=== PATIENT | female | born 1990 | race Caucasian/White ===

== ENCOUNTER 2018-10-02 20:05 | Emergency (ER) | payer OTHER ==
[~2018-10-02] VITALS: Ht 170.2 cm; Wt 136.1 kg
[~2018-10-02 20:05] MED LIST: ACCUNEB SO1.25 MG/1 INH; METFORMIN HCL500 MG PO; PRILOSEC10 MG PO; ULTRAM 50MG TAB50 MG PO; ZOFRAN ODT4 MG PO
[2018-10-02] MEDS ORDERED: TRAZODONE HCL50 MG (20:18)
[2018-10-02] MEDS ORDERED: CYCLOBENZAPRINE5 MG (20:18)
[2018-10-02 20:33] LABS: URINE BILIRUBIN NEGATIVE (Negative); URINE BLOOD NEGATIVE (Negative); URINE CLARITY CLEAR; URINE COLOR YELLOW; URINE GLUCOSE-RANDOM 3+ (Negative); URINE KETONES NEGATIVE (Negative); URINE LEUKOCYTES-REFLEX NEGATIVE (Negative); URINE NITRITE-REFLEX NEGATIVE (Negative); URINE PROTEIN NEGATIVE (Negative); URINE SPECIFIC GRAVITY >= 1.030 (1.005-1.030); URINE UROBILINOGEN 0.2 E.U./dl (0.2-1.0)
[2018-10-02] MEDS ORDERED: ROBAXIN 750 MG750 M1 PO (20:44)
[2018-10-02 20:54] VITALS: BP 137/86
== END 2018-10-02 20:54 | disposition home or self-care (01) ==
LOC: M.ERS 20:05
PROVIDERS: Nurse Practitioner Family
DX: S39.012A Strain of muscle, fascia and tendon of lower back, initial encounter (principal); R31.9 Hematuria, unspecified; E11.9 Type 2 diabetes mellitus without complications; J45.909 Unspecified asthma, uncomplicated; Z90.49 Acquired absence of other specified parts of digestive tract; Z88.1 Allergy status to other antibiotic agents; Z88.0 Allergy status to penicillin; Z88.8 Allergy status to other drugs, medicaments and biological substances; X58.XXXA Exposure to other specified factors, initial encounter; Y93.89 Activity, other specified; Y92.89 Other specified places as the place of occurrence of the external cause; Y99.8 Other external cause status

== ENCOUNTER 2019-11-17 23:14 | Emergency (ER) | payer OTHER ==
[~2019-11-17] VITALS: Ht 170.2 cm; Wt 140.6 kg
[~2019-11-17 23:14] MED LIST changes: +CYCLOBENZAPRINE5 MG; +ROBAXIN 750 MG750 M1 PO; +TRAZODONE HCL50 MG
[2019-11-17] MEDS ORDERED: HYDROCHLOROTHIA25 M2 PO (23:29)
[2019-11-17] MEDS ORDERED: LANTUS SUBQ (23:29)
[2019-11-17] MEDS ORDERED: LEXAPRO 10 MG T10 M1 PO (23:30)
[2019-11-18 00:03] LABS: HEMATOCRIT 42.4 % (37.0-47.0); HEMOGLOBIN 14.7 gm/dL (12.0-15.0); MCH 31.2 pg (26.0-34.0); MCHC 34.8 g/dL (28.0-37.0); MCV 89.7 fL (80.0-100.0); MPV 7.9 fl. (7.2-11.1); RBC 4.72 mil/uL (4.20-5.00); RDW-CV 12.6 % (10.5-14.5); WBC 9.3 thou/uL (4.0-11.0)
[2019-11-18 00:08] LABS: URINE BILIRUBIN NEGATIVE (Negative); URINE BLOOD NEGATIVE (Negative); URINE CLARITY CLEAR; URINE COLOR YELLOW; URINE GLUCOSE-RANDOM 3+ (Negative); URINE KETONES NEGATIVE (Negative); URINE LEUKOCYTES-REFLEX NEGATIVE (Negative); URINE NITRITE-REFLEX NEGATIVE (Negative); URINE PROTEIN NEGATIVE (Negative); URINE UROBILINOGEN 0.2 E.U./dl (0.2-1.0)
[2019-11-18 00:11] LABS: CALCIUM 8.7 mg/dL (8.5-10.1); CREATININE 0.6 mg/dL (0.6-1.3); POTASSIUM 3.4 mmol/L (3.5-5.1)
[2019-11-18 00:16] LABS: ALBUMIN 3.1 g/dL (3.4-5.0); TOTAL BILIRUBIN 0.2 mg/dL (<0.1-1.0); TOTAL PROTEIN 6.9 g/dL (6.4-8.2)
[2019-11-18 00:38] LABS: BE 0.1 mmol/L (-2 to +3); PCO2 VENOUS 39.9 mmHg (41.0-51.0); PO2 VENOUS 156.5 mmHg (35.0-45.0)
[2019-11-18] MEDS ORDERED: CLINDAMYCIN HC150 MG PO (02:22)
[2019-11-18 02:36] VITALS: BP 123/84
== END 2019-11-18 02:36 | disposition home or self-care (01) ==
LOC: M.ERS 23:14
PROVIDERS: Emergency Medicine Emergency Medical Services
DX: E11.65 Type 2 diabetes mellitus with hyperglycemia (principal); K02.9 Dental caries, unspecified; J45.909 Unspecified asthma, uncomplicated; Z90.89 Acquired absence of other organs; Z90.49 Acquired absence of other specified parts of digestive tract; Z87.442 Personal history of urinary calculi; Z88.1 Allergy status to other antibiotic agents; Z88.6 Allergy status to analgesic agent; Z88.0 Allergy status to penicillin; Z88.8 Allergy status to other drugs, medicaments and biological substances

== ENCOUNTER 2019-11-23 07:39 | Emergency (ER) | payer OTHER ==
[~2019-11-23] VITALS: Ht 170.2 cm; Wt 138.8 kg
[~2019-11-23 07:39] MED LIST changes: +CLINDAMYCIN HC150 MG PO; +HYDROCHLOROTHIA25 M2 PO; +LANTUS SUBQ; +LEXAPRO 10 MG T10 M1 PO
[2019-11-23] MEDS ORDERED: TRAMADOL 50 MG50 MG PO (08:12)
[2019-11-23 08:24] VITALS: BP 170/111
== END 2019-11-23 08:24 | disposition home or self-care (01) ==
LOC: M.ERS 07:39
DX: K02.9 Dental caries, unspecified (principal); E11.9 Type 2 diabetes mellitus without complications; Z88.1 Allergy status to other antibiotic agents; Z88.2 Allergy status to sulfonamides; Z88.8 Allergy status to other drugs, medicaments and biological substances; Z88.0 Allergy status to penicillin; J45.909 Unspecified asthma, uncomplicated; Z90.49 Acquired absence of other specified parts of digestive tract; Z86.2 Personal history of diseases of the blood and blood-forming organs and certain disorders involving the immune mechanism; Z87.442 Personal history of urinary calculi; Z79.4 Long term (current) use of insulin

== ENCOUNTER 2020-02-06 15:41 | Emergency (ER) | payer OTHER ==
[~2020-02-06] VITALS: Ht 170.2 cm; Wt 138.8 kg
[~2020-02-06 15:41] MED LIST changes: +TRAMADOL 50 MG50 MG PO
[2020-02-06] MEDS ORDERED: LEVEMIR100 UNIT/1 (15:50)
[2020-02-06] MEDS ORDERED: TRULICITY0.75 MG/0. (15:51)
[2020-02-06 16:28] LABS: URINE BILIRUBIN NEGATIVE (Negative); URINE BLOOD 2+ (Negative); URINE CLARITY CLEAR; URINE COLOR YELLOW; URINE GLUCOSE-RANDOM 3+ (Negative); URINE KETONES NEGATIVE (Negative); URINE LEUKOCYTES-REFLEX NEGATIVE (Negative); URINE NITRITE-REFLEX NEGATIVE (Negative); URINE PROTEIN NEGATIVE (Negative); URINE SPECIFIC GRAVITY 1.015 (1.005-1.030); URINE UROBILINOGEN 0.2 E.U./dl (0.2-1.0)
[2020-02-06 16:37] LABS: MUCUS None Seen strn/LPF (None Seen); SQUAMOUS >10 Many /LPF (0-3)
[2020-02-06 16:38] LABS: BACTERIA-REFLEX 1-9 Few /HPF (None Seen); CASTS None Seen /LPF (None Seen); CRYSTALS None Seen /LPF (None Seen); URINE RBC 3-10 Few /HPF (0-2); URINE WBC-REFLEX 0-5 Rare /HPF (0-5); YEAST-REFLEX Present (None Seen)
[2020-02-06 16:42] LABS: INFLUENZA A ANTIGEN Negative (Negative); INFLUENZA B ANTIGEN Negative (Negative)
[2020-02-06] MEDS ORDERED: TESSALON PERLE100 MG PO (17:19)
[2020-02-06] MEDS ORDERED: ZPAK PO (17:19)
[2020-02-06 17:29] VITALS: BP 156/76
== END 2020-02-06 17:31 | disposition home or self-care (01) ==
LOC: M.ERS 15:41
PROVIDERS: Nurse Practitioner
DX: J06.9 Acute upper respiratory infection, unspecified (principal); E11.9 Type 2 diabetes mellitus without complications; J45.909 Unspecified asthma, uncomplicated; K58.9 Irritable bowel syndrome, unspecified; Z87.442 Personal history of urinary calculi; Z90.49 Acquired absence of other specified parts of digestive tract; Z86.2 Personal history of diseases of the blood and blood-forming organs and certain disorders involving the immune mechanism; Z79.4 Long term (current) use of insulin; Z88.0 Allergy status to penicillin; Z88.1 Allergy status to other antibiotic agents; Z88.2 Allergy status to sulfonamides; Z88.8 Allergy status to other drugs, medicaments and biological substances

== ENCOUNTER 2020-02-26 23:43 | Emergency (ER) | payer OTHER ==
[~2020-02-26] VITALS: Ht 170.2 cm; Wt 138.3 kg
[~2020-02-26 23:43] MED LIST changes: +LEVEMIR100 UNIT/1; +TESSALON PERLE100 MG PO; +TRULICITY0.75 MG/0.; +ZPAK PO
[2020-02-26 23:52] VITALS: BP 145/88
[2020-02-26] MEDS ORDERED: METFORMIN HCL500 M3 PO (23:55)
[2020-02-27] MEDS ORDERED: LEXAPRO 10 MG T10 M1 PO (00:13)
== END 2020-02-27 00:30 | disposition home or self-care (01) ==
LOC: M.ERS 23:43
DX: F41.9 Anxiety disorder, unspecified (principal); K58.9 Irritable bowel syndrome, unspecified; E11.9 Type 2 diabetes mellitus without complications; J45.909 Unspecified asthma, uncomplicated; Z88.1 Allergy status to other antibiotic agents; Z88.0 Allergy status to penicillin; Z88.2 Allergy status to sulfonamides; Z88.8 Allergy status to other drugs, medicaments and biological substances; Z87.442 Personal history of urinary calculi; Z90.49 Acquired absence of other specified parts of digestive tract; Z86.2 Personal history of diseases of the blood and blood-forming organs and certain disorders involving the immune mechanism; Z79.4 Long term (current) use of insulin

== ENCOUNTER 2021-02-02 17:51 | Emergency (ER) | payer OTHER ==
[~2021-02-02] VITALS: Ht 170.2 cm; Wt 136.1 kg
[~2021-02-02 17:51] MED LIST changes: +METFORMIN HCL500 M3 PO
[2021-02-02] MEDS ORDERED: LISINOPRIL10 MG PO (18:01)
[2021-02-02] MEDS ORDERED: XULTOPHY 100 UNI3 ML SUBQ (18:01)
[2021-02-02] MEDS ORDERED: CLEOCIN HCL300 MG PO (18:04)
[2021-02-02] MEDS ORDERED: DIFLUCAN150 MG PO (18:04)
[2021-02-02] MEDS ORDERED: TRAMADOL 50 MG50 MG PO (18:04)
[2021-02-02 18:12] VITALS: BP 144/88
== END 2021-02-02 18:13 | disposition home or self-care (01) ==
LOC: M.ERS 17:51
DX: K02.9 Dental caries, unspecified (principal); E11.9 Type 2 diabetes mellitus without complications; J45.909 Unspecified asthma, uncomplicated; K58.9 Irritable bowel syndrome, unspecified; I10 Essential (primary) hypertension; Z90.49 Acquired absence of other specified parts of digestive tract; Z86.2 Personal history of diseases of the blood and blood-forming organs and certain disorders involving the immune mechanism; Z88.1 Allergy status to other antibiotic agents; Z88.2 Allergy status to sulfonamides; Z88.8 Allergy status to other drugs, medicaments and biological substances; Z87.442 Personal history of urinary calculi

== ENCOUNTER 2021-04-27 18:21 | Emergency (ER) | payer OTHER ==
[~2021-04-27] VITALS: Ht 170.2 cm; Wt 135.2 kg
[~2021-04-27 18:21] MED LIST changes: +CLEOCIN HCL300 MG PO; +DIFLUCAN150 MG PO; +LISINOPRIL10 MG PO; +XULTOPHY 100 UNI3 ML SUBQ
[2021-04-27 18:26] VITALS: BP 135/91
[2021-04-27] MEDS ORDERED: LEXAPRO 10 MG T10 M1 PO (18:31)
[2021-04-27] MEDS ORDERED: PHENTERMINE H37.5 MG PO (18:32)
[2021-04-27] MEDS ORDERED: CLEOCIN HCL150 MG PO (18:48)
== END 2021-04-27 19:08 | disposition home or self-care (01) ==
LOC: M.ERS 18:21
DX: K04.7 Periapical abscess without sinus (principal); I10 Essential (primary) hypertension; E11.9 Type 2 diabetes mellitus without complications; Z87.442 Personal history of urinary calculi; J45.909 Unspecified asthma, uncomplicated; Z90.49 Acquired absence of other specified parts of digestive tract; Z86.2 Personal history of diseases of the blood and blood-forming organs and certain disorders involving the immune mechanism; Z88.1 Allergy status to other antibiotic agents; Z88.0 Allergy status to penicillin; Z88.2 Allergy status to sulfonamides; Z88.8 Allergy status to other drugs, medicaments and biological substances

== ENCOUNTER 2021-08-09 18:27 | Emergency (ER) | payer OTHER ==
[~2021-08-09] VITALS: Ht 170.2 cm; Wt 136.1 kg
[~2021-08-09 18:27] MED LIST changes: +CLEOCIN HCL150 MG PO; +PHENTERMINE H37.5 MG PO
[2021-08-09] MEDS ORDERED: CLEOCIN HCL150 M1 PO (22:04)
[2021-08-09 22:09] VITALS: BP 150/70
== END 2021-08-09 22:09 | disposition home or self-care (01) ==
LOC: M.ERS 18:27
DX: K04.7 Periapical abscess without sinus (principal); E11.9 Type 2 diabetes mellitus without complications; J45.909 Unspecified asthma, uncomplicated; I10 Essential (primary) hypertension; Z87.442 Personal history of urinary calculi; Z79.4 Long term (current) use of insulin; Z79.899 Other long term (current) drug therapy; Z88.1 Allergy status to other antibiotic agents; Z88.8 Allergy status to other drugs, medicaments and biological substances; Z88.0 Allergy status to penicillin; Z88.2 Allergy status to sulfonamides

== ENCOUNTER 2021-10-16 20:18 | Emergency (ER) | payer OTHER ==
[~2021-10-16] VITALS: Ht 170.2 cm; Wt 138.8 kg
[~2021-10-16 20:18] MED LIST changes: +CLEOCIN HCL150 M1 PO
[2021-10-16 21:33] LABS: ABSOLUTE BASOPHILS 0.1 thou/uL (0.0-0.2); ABSOLUTE EOSINOPHILS 0.2 thou/uL (0.0-0.7); ABSOLUTE MONOCYTES 0.6 thou/uL (0.0-1.2); ABSOLUTE NEUTROPHILS 7.6 thou/uL (1.6-8.1); BASOPHILS 0.6 %; EOSINOPHILS 2.2 %; HEMATOCRIT 45.2 % (37.0-47.0); HEMOGLOBIN 15.1 gm/dL (12.0-15.0); LYMPHOCYTES 19.4 %; MCH 30.9 pg (26.0-34.0); MCHC 33.5 g/dL (28.0-37.0); MCV 92.2 fL (80.0-100.0); MONOCYTES 5.3 %; MPV 7.4 fl. (7.2-11.1); NUCLEATED RBCS 0 /100WBC; PLATELET COUNT* 312 thou/uL (150-400); POLYS 72.5 %; RDW-CV 12.8 % (10.5-14.5); WBC 10.5 thou/uL (4.0-11.0)
[2021-10-16 21:37] LABS: CALCIUM 9.1 mg/dL (8.5-10.1); CREATININE 0.6 mg/dL (0.6-1.3); POTASSIUM 4.4 mmol/L (3.5-5.1)
[2021-10-16] MEDS ORDERED: DIFLUCAN150 MG PO (22:28)
[2021-10-16] MEDS ORDERED: METRONIDAZOLE500 M4 PO (22:28)
[2021-10-16] MEDS ORDERED: HYDROCODON-ACE1 EAC8 PO (22:28)
[2021-10-16] MEDS ORDERED: DOXYCYCLINE 10100 MG PO (22:28)
[2021-10-16 22:38] VITALS: BP 153/94
== END 2021-10-16 22:39 | disposition home or self-care (01) ==
LOC: M.ERS 20:18
PROVIDERS: Emergency Medicine
DX: K08.89 Other specified disorders of teeth and supporting structures (principal); F12.90 Cannabis use, unspecified, uncomplicated; E11.9 Type 2 diabetes mellitus without complications; J45.909 Unspecified asthma, uncomplicated; I10 Essential (primary) hypertension; Z88.1 Allergy status to other antibiotic agents; Z88.3 Allergy status to other anti-infective agents; Z88.0 Allergy status to penicillin; Z88.8 Allergy status to other drugs, medicaments and biological substances; Z79.899 Other long term (current) drug therapy; Z87.442 Personal history of urinary calculi